=== PATIENT | male | born 1990 | race Two or more races ===

== ENCOUNTER 2022-09-23 07:49 | Outpatient (CLI) | payer OTHER ==
[~2022-09-23 07:49] MED LIST: CHILDREN'S ASPI81 MG; COZAAR100 MG; FINASTERIDE1 MG; JANTOVEN5 MG; KETO10TA2 PO; LIPITOR40 M1; LOSARTAN POTASSI1 GM MC; MEDROLPACK PO; NEXIUM 24HR20 MG; NEXIUM2.5 MG PO; NORFLEX100MG PO; ROGAINE60 GM; ROGAINE60 GM TP; SKELAXIN800 MG PO; TOPROL XL100 M1; TOPROL XL100 M1 PO; VAZALORE81 MG PO
== END 2022-09-23 08:03 | disposition home or self-care (01) ==
LOC: TOM 07:49
PROVIDERS: ATTEND Internal Medicine Gastroenterology
DX: R10.10 Upper abdominal pain, unspecified (principal); R10.30 Lower abdominal pain, unspecified

== ENCOUNTER 2023-05-26 12:20 | Outpatient (CLI) | payer OTHER | END 2023-05-26 12:32 | disposition home or self-care (01) | LOC: SONOGRAMA 12:20 | PROVIDERS: ATTEND Internal Medicine | DX: N50.819 Testicular pain, unspecified (principal) ==

== ENCOUNTER 2024-08-25 17:59 | Emergency (ER) | payer OTHER ==
[~2024-08-25] VITALS: Ht 170.2 cm; Wt 110.2 kg
[2024-08-25] MEDS ORDERED: AMLODIPINE-OLM1 EAC2 (18:36)
[2024-08-25] MEDS ORDERED: KETOROLAC TROMETHAMINE 60 MG VIAL IM ONE (19:00)
[2024-08-25 19:55] LABS: BASO % 0.4 % (0.1-1.2); EOS # 0.13 (0.04-0.54); EOS % 1.6 % (0.7-7.0); HEMOGLOBIN 14.8 g/dL (13.7-17.5); LYMPH # 2.34 (1.18-3.74); LYMPH % 28.4 % (19.3-53.1); MEAN CORPUSCULAR HEMOGLOBIN 29.6 pg (25.6-32.2); MONO # 0.42 (0.24-0.82); MONO % 5.1 % (4.7-12.5); NEUT # 5.28 (1.56-6.13); NEUT % 64.1 % (34.0-71.1); PLATELET COUNT 251 K/uL (163-369); RED CELL DISTRIBUTION WIDTH 12.4 % (11.6-14.4)
[2024-08-25 20:45] LABS: BILIRUBIN TOTAL 0.65 mg/dL (0.3-1.2); CALCIUM 8.5 mg/dL (8.5-10.1); CREATININE SERUM 0.88 mg/dL (0.70-1.30); GFR 98.55; GLOBULINA 3.1 G/DL (2.4-3.5); POTASSIUM 4.3 mEq/L (3.5-5.1); TOTAL PROTEIN 7.1 gm/dL (6.4-8.2)
[2024-08-25] MEDS ORDERED: NORFLEX100MG PO (21:15)
== END 2024-08-25 21:31 | disposition home or self-care (01) ==
LOC: ER 19:10
PROVIDERS: General Practice
DX: M89.8X1 Other specified disorders of bone, shoulder (principal); I10 Essential (primary) hypertension; Z95.4 Presence of other heart-valve replacement

== ENCOUNTER 2024-08-31 08:42 | Outpatient (CLI) | payer OTHER ==
[~2024-08-31 08:42] MED LIST changes: +AMLODIPINE-OLM1 EAC2
== END 2024-08-31 08:48 | disposition home or self-care (01) ==
LOC: NUCLEAR 08:42
PROVIDERS: ATTEND Internal Medicine Cardiovascular Disease
DX: Z95.2 Presence of prosthetic heart valve (principal); Z95.4 Presence of other heart-valve replacement

== ENCOUNTER 2025-01-05 05:06 | Emergency (ER) | payer OTHER ==
[~2025-01-05] VITALS: Ht 172.7 cm; Wt 104.3 kg
[2025-01-05] MEDS ORDERED: WARFARIN SODIUM5 MG PO (05:17)
[2025-01-05] MEDS ORDERED: LOSARTAN POTAS100 MG PO (05:18)
[2025-01-05] MEDS ORDERED: FINASTERIDE1 MG PO (05:19)
[2025-01-05] MEDS ORDERED: METOPROLOL SUC100 MG PO (05:19)
[2025-01-05] MEDS ORDERED: 0.9 % SODIUM CHLORIDE 1,000 ML IV ONE (06:00)
[2025-01-05] MEDS ORDERED: KETOROLAC TROMETHAMINE 30 MG VIAL IV STA (06:01)
[2025-01-05] MEDS ORDERED: KETOROLAC TROMETHAMINE 30 MG VIAL ONE ×2 (06:05→10:46)
[2025-01-05] MEDS ORDERED: BARIUM SULFATE 450 ML ORAL.SUSP PO ONE (06:06)
[2025-01-05 06:55] LABS: BASO % 0.2 % (0.1-1.2); EOS # 0.01 (0.04-0.54); EOS % 0.1 % (0.7-7.0); LYMPH # 1.43 (1.18-3.74); LYMPH % 12.1 % (19.3-53.1); MEAN PLATELET VOLUME 9.80 fl (9.4-12.4); MONO # 0.53 (0.24-0.82); MONO % 4.5 % (4.7-12.5); NEUT # 9.80 (1.56-6.13); NEUT % 82.8 % (34.0-71.1); RED CELL DISTRIBUTION WIDTH 12.4 % (11.6-14.4)
[2025-01-05 07:27] LABS: URINE APPEARANCE Cloudy; URINE BILIRRUBIN Negative (NEGATIVE); URINE BLOOD Negative; URINE COLOR Yellow; URINE GLUCOSE Negative (NEGATIVE); URINE LEUKOCYTE Negative; URINE NITRATE Negative; URINE UROBILINOGEN 1.0 E.U./dl
[2025-01-05 07:30] LABS: URINE BACTERIA 13.1 uL (0.0-1933); URINE EPITHELIAL CELLS 3.2 uL (0.0-38.8); URINE RBC 16.2 uL (0.0-20.8); URINE WBC 6.3 uL (0.0-23.2)
[2025-01-05 07:33] LABS: INR 1.29
[2025-01-05 07:42] LABS: ALT/SGPT 56.0 U/L (12-78); AST/SGOT 23.0 U/L (15-37); BILIRUBIN TOTAL 0.99 mg/dL (0.3-1.2); BUN CREA RATIO 14.0 (7.0-25.0); CREATININE SERUM 0.73 mg/dL (0.70-1.30); GFR 122.27; GLOBULINA 3.4 G/DL (2.4-3.5); GLUCOSE FASTING 105.0 mg/dL (65-100); OSMOLALITY SERUM 277.0 MOSM/KG (275-295)
[2025-01-05 08:00] LABS: URINE CAST 0.14 uL (0.0-1.40); URINE KETONE 80 (NEGATIVE); URINE PROTEIN 100 (NEGATIVE)
[2025-01-05] MEDS ORDERED: KETOROLAC TROMETHAMINE 30 MG VIAL IM STA (10:43)
[2025-01-05] MEDS ORDERED: KETO10TA2 PO (11:11)
== END 2025-01-05 11:53 | disposition expired ==
LOC: ER 05:06
PROVIDERS: General Practice
DX: N20.0 Calculus of kidney (principal); R10.32 Left lower quadrant pain; R10.9 Unspecified abdominal pain; I10 Essential (primary) hypertension
CPT/HCPCS: 36415; 74177; Q9965